=== PATIENT | female | born 1970 | race Caucasian/White ===

== ENCOUNTER 2022-05-07 16:49 | Emergency (ER) | payer OTHER ==
[2022-05-07 17:07] VITALS: BP 134/90; PULSE 98; RESP 18; TEMP 98.2; BMI 20.9
[2022-05-07] MEDS ORDERED: DIPHTH,PERTUSS(ACELL),TET 0.5 ML DISP.SYRIN IM ONE ×2 (17:50→18:26)
== END 2022-05-07 20:35 | disposition home or self-care (01) ==
LOC: JERFT 16:49 → JER 16:49 → JERFT 20:35
PROC: 3E0234Z Introduction of Serum, Toxoid and Vaccine into Muscle, Percutaneous Approach (ICD-10-PCS; principal; 2022-05-07)
DX: S61.411A Laceration without foreign body of right hand, initial encounter (principal); W29.8XXA Contact with other powered hand tools and household machinery, initial encounter
CPT/HCPCS: 90471; 90715; 99284-25

== ENCOUNTER 2023-08-09 07:33 | Inpatient (IN) | payer OTHER ==
[2023-08-09] MEDS: SODIUM CHLORIDE 1,000 ML IV STA (08:00)
[2023-08-09 08:34] LABS: VENOUS BASE EXCESS -5.5 mmol/L (-2-2); VENOUS O2 SATURATION 94.3 % (70-80)
[2023-08-09 08:36] LABS: BASO % 0.1 % (0-2.0); HEMATOCRIT 37.5 % (32.4-45.2); HEMOGLOBIN 13.1 GM/dL (10.7-15.3); LYMPH % 13.2 % (8-40); MCH 31.5 pg (25.7-33.7); MEAN CELL VOLUME 89.9 fl (80-96); MEAN PLT VOLUME 9.2 fl (7.5-11.1); MONO % 2.8 % (3.8-10.2); NEUT % 83.9 % (42.8-82.8); PLATELET COUNT 174 10^3/uL (134-434); RBC 4.17 M/mm3 (3.60-5.2); RDW 12.6 % (11.6-15.6); VENOUS PCO2 71.2 mmHg (38-52); VENOUS PH 7.157 (7.310-7.410); WHITE BLOOD COUNT 9.4 K/mm3 (4.0-10.0)
[2023-08-09 08:40] LABS: INR 1.07 (0.83-1.09); PROTHROMBIN TIME (PATIENT) 12.4 SEC (9.7-13.0)
[2023-08-09 08:43] LABS: ACTIVATED PTT 30.5 SECONDS (25.2-36.5)
[2023-08-09] MEDS ORDERED: DEXTROSE 5% IVPB ONE ×3 (08:43)
[2023-08-09] MEDS ORDERED: ACETYLCYSTEINE IVPB ONE ×3 (08:43)
[2023-08-09] MEDS ORDERED: WATER IVPB ONE ×3 (08:43)
[2023-08-09 09:00] LABS: CHLORIDE 104 mmol/L (98-107); POTASSIUM 4.4 mmol/L (3.5-5.1); SODIUM 137 mmol/L (136-145)
[2023-08-09 09:03] LABS: CALCIUM 8.9 mg/dL (8.5-10.1)
[2023-08-09 09:04] LABS: ANION GAP 8 mmol/L (4-13); BLOOD UREA NITROGEN 23.5 mg/dL (7-18); CO2 26 mmol/L (21-32); GLUCOSE,RANDOM 219 mg/dL (74-106); MAGNESIUM 2.5 mg/dL (1.8-2.4)
[2023-08-09 09:06] LABS: SGPT/ALT 26 U/L (13-61)
[2023-08-09 09:07] LABS: CREATININE 1.7 mg/dL (0.55-1.3); SGOT/AST 38 U/L (15-37)
[2023-08-09 09:08] LABS: BILIRUBIN,TOTAL 0.3 mg/dL (0.2-1); TOT PROT 6.9 g/dl (6.4-8.2)
[2023-08-09 09:09] LABS: ALK PHOS 64 U/L (45-117)
[2023-08-09 09:12] LABS: EPI CELLS >36 /uL (0-25.1); HYALINE CASTS 3 /uL (0-3.1); PH,URINE 6.5 (5.0-8.0); URINE APPEARANCE CLOUDY; URINE BACTERIA 406 /uL (0-1359); URINE BILIRUBIN NEGATIVE (NEGATIVE); URINE COLOR YELLOW; URINE GLUCOSE (UA) 1+ (NEGATIVE); URINE KETONE NEGATIVE (NEGATIVE); URINE LEUK ESTERASE 2+ (NEGATIVE); URINE NITRITE NEGATIVE (NEGATIVE); URINE PROTEIN 1+ (NEGATIVE); URINE RBC 12 /uL (0-23.9); URINE WBC 43 /uL (0-25.8)
[2023-08-09] MEDS: SODIUM CHLORIDE 0.9% 500 ML INFUS.BAG IV ONE (09:35)
[2023-08-09 10:20] LABS: ARTERIAL BLD GAS O2 SATURATION 99.3 % (95-98); ARTERIAL BLOOD GAS BASE EXCESS -4.7 mmol/L (-2-2); ARTERIAL BLOOD GAS PO2 207.8 mmHg (80-100); ARTERIAL BLOOD GAS pH 7.278 (7.350-7.450)
[2023-08-09] MEDS: WATER IVPB ONE ×6 (10:45→18:53)
[2023-08-09] MEDS: DEXTROSE 5% IVPB ONE ×6 (10:45→18:53)
[2023-08-09] MEDS: ACETYLCYSTEINE IVPB ONE ×6 (10:45→18:53)
[2023-08-09 14:22] LABS: ARTERIAL BLOOD GAS BASE EXCESS -2.2 mmol/L (-2-2); ARTERIAL BLOOD GAS PO2 63.2 mmHg (80-100); ARTERIAL BLOOD GAS pH 7.429 (7.350-7.450)
[2023-08-09 14:23] LABS: ALLENS TEST POSITIVE
[2023-08-09 14:24] LABS: VENT MODE AC; VENT RATE 16
[2023-08-09 14:59] LABS: POTASSIUM 3.7 mmol/L (3.5-5.1)
[2023-08-09 15:01] LABS: BLOOD UREA NITROGEN 24.2 mg/dL (7-18)
[2023-08-09 15:04] LABS: CREATININE 1.2 mg/dL (0.55-1.3)
[2023-08-09 15:06] LABS: BILIRUBIN,TOTAL 0.6 mg/dL (0.2-1); TOT PROT 5.1 g/dl (6.4-8.2)
[2023-08-09 15:16] LABS: ALBUMIN 2.9 g/dl (3.4-5.0)
[2023-08-09] MEDS: LACTATED RINGERS SOLUTION 1,000 ML/1,000 ML INFUS.BAG IV SCH (16:26)
[2023-08-09 18:03] LABS: INR 1.24 (0.83-1.09); PROTHROMBIN TIME (PATIENT) 14.3 SEC (9.7-13.0)
[2023-08-09 18:18] LABS: POTASSIUM 3.3 mmol/L (3.5-5.1)
[2023-08-09 18:25] LABS: BILIRUBIN,TOTAL 0.6 mg/dL (0.2-1); TOT PROT 5.6 g/dl (6.4-8.2)
[2023-08-09] MEDS: POTASSIUM CHLORIDE ORAL LIQUID 20 MEQ/15 ML PO ONE (18:52)
[2023-08-09] MEDS: CEFTRIAXONE 1 GM in DEXTROSE 5%-WATER - 50 ML IVPB SCH (18:53)
[2023-08-09] MEDS: LACTATED RINGERS SOLUTION 1000 ML INFUS.BAG IV ONE (18:54)
[2023-08-09] MEDS: FENTANYL NS IVPB 500 MCG/100 ML BAG IVPB SCH (20:03)
[2023-08-09] MEDS: MIDAZOLAM IN 0.9 % SOD.CHLORID 100 MG/100 ML PLAST..BAG IVPB SCH (20:03)
[2023-08-09] MEDS ORDERED: NOREPINEPHRINE BITARTRATE 4 MG/4 ML ML IV ONE (21:52)
[2023-08-09] MEDS: CHLORHEXIDINE GLUCONATE 4% CLEANSER FOR DECOLONIZATION TP SCH (21:53)
[2023-08-09] MEDS: NOREPINEPHRINE BITARTRATE 4,000 MCG in DEXTROSE 5%-WATER - 496 ML IV SCH (21:53)
[2023-08-09] MEDS: MUPIROCIN 2% TOPICAL OINTMENT FOR DECOLONIZATION NS SCH (21:57)
[2023-08-10 00:24] LABS: COCAINE, UR NEGATIVE (NEGATIVE); PHENCYCLIDINE,URINE NEGATIVE (NEGATIVE)
[2023-08-10 00:25] LABS: METHADONE, UR NEGATIVE (NEGATIVE); URINE AMPHETAMINES NEGATIVE (NEGATIVE); URINE BARBITURATES NEGATIVE (NEGATIVE)
[2023-08-10 01:18] LABS: OPIATES, URI POSITIVE (NEGATIVE); URINE BENZODIAZEPINES POSITIVE (NEGATIVE)
[2023-08-10 01:44] LABS: POTASSIUM 3.1 mmol/L (3.5-5.1)
[2023-08-10 01:49] LABS: ALBUMIN 2.6 g/dl (3.4-5.0); CALCIUM 7.6 mg/dL (8.5-10.1)
[2023-08-10 01:50] LABS: MAGNESIUM 1.3 mg/dL (1.8-2.4)
[2023-08-10 01:52] LABS: CREATININE 1.1 mg/dL (0.55-1.3); PHOSPHOROUS 3.1 mg/dL (2.5-4.9)
[2023-08-10 01:53] LABS: INR 1.43 (0.83-1.09); PROTHROMBIN TIME (PATIENT) 16.5 SEC (9.7-13.0)
[2023-08-10 01:54] LABS: BILIRUBIN,TOTAL 0.4 mg/dL (0.2-1); TOT PROT 5.1 g/dl (6.4-8.2)
[2023-08-10] MEDS: MAGNESIUM 2GM/50ML STERILE WATER IVPB IVPB ONE (03:00)
[2023-08-10] MEDS: KCL 10 MEQ IVPB 10 MEQ/100 ML INFUS.BAG IVPB SCH (03:15)
[2023-08-10] MEDS: CALCIUM GLUC IN NACL, ISO-OSM 1 GM/50 ML BAG IVPB ONE (04:10)
[2023-08-10] MEDS: LEVOTHYROXINE NA 100 MCG TABLET (FP) GT SCH (06:25)
[2023-08-10] MEDS: HEPARIN NA (PORCINE) 5,000 UNITS/ML 1ML VIAL SQ SCH (06:25)
[2023-08-10 07:00] LABS: BASO % 0.3 % (0-2.0); EOS % 0.3 % (0-4.5); HEMATOCRIT 37.4 % (32.4-45.2); HEMOGLOBIN 12.7 GM/dL (10.7-15.3); LYMPH % 24.1 % (8-40); MCH 30.6 pg (25.7-33.7); MCHC 33.8 g/dl (32.0-36.0); MEAN CELL VOLUME 90.5 fl (80-96); MEAN PLT VOLUME 9.4 fl (7.5-11.1); MONO % 3.1 % (3.8-10.2); NEUT % 72.2 % (42.8-82.8); PLATELET COUNT 142 10^3/uL (134-434); RBC 4.14 M/mm3 (3.60-5.2); RDW 12.5 % (11.6-15.6); WHITE BLOOD COUNT 4.3 K/mm3 (4.0-10.0)
[2023-08-10 07:14] LABS: INR 1.46 (0.83-1.09); PROTHROMBIN TIME (PATIENT) 16.9 SEC (9.7-13.0)
[2023-08-10 07:18] LABS: ALBUMIN 2.8 g/dl (3.4-5.0); BLOOD UREA NITROGEN 14.9 mg/dL (7-18); CALCIUM 8.6 mg/dL (8.5-10.1)
[2023-08-10 07:21] LABS: CREATININE 1.1 mg/dL (0.55-1.3)
[2023-08-10 07:22] LABS: BILIRUBIN,TOTAL 0.4 mg/dL (0.2-1); TOT PROT 5.3 g/dl (6.4-8.2)
[2023-08-10] MEDS: LEVOTHYROXINE SODIUM 100 MCG 5 ML VIAL IVPUSH ONE ×2 (07:25→07:26)
[2023-08-10] MEDS ORDERED: ENOXAPARIN NA (PORCINE) 40 MG/0.4 ML DISP.SYRIN SQ SCH ×2 (10:00)
[2023-08-10 10:57] LABS: MAGNESIUM 2.3 mg/dL (1.8-2.4)
[2023-08-10] MEDS: LACTATED RINGERS SOLUTION 1,000 ML/1,000 ML INFUS.BAG IV SCH (12:45)
[2023-08-10 16:37] LABS: INR 1.8 (0.83-1.09); PROTHROMBIN TIME (PATIENT) 20.8 SEC (9.7-13.0)
[2023-08-10 16:52] LABS: POTASSIUM 3.8 mmol/L (3.5-5.1)
[2023-08-10 16:54] LABS: ALBUMIN 2.4 g/dl (3.4-5.0); BLOOD UREA NITROGEN 12.1 mg/dL (7-18); CALCIUM 8.2 mg/dL (8.5-10.1)
[2023-08-10 16:58] LABS: CREATININE 0.8 mg/dL (0.55-1.3)
[2023-08-10 16:59] LABS: BILIRUBIN,TOTAL 0.2 mg/dL (0.2-1)
[2023-08-11] MEDS: LEVOTHYROXINE SODIUM 100 MCG 5 ML VIAL IVPUSH SCH (06:14)
[2023-08-11 06:29] LABS: HEMATOCRIT 32.1 % (32.4-45.2); HEMOGLOBIN 10.9 GM/dL (10.7-15.3); MCH 30.7 pg (25.7-33.7); MEAN CELL VOLUME 90.2 fl (80-96); MEAN PLT VOLUME 9.3 fl (7.5-11.1); PLATELET COUNT 137 10^3/uL (134-434); RBC 3.56 M/mm3 (3.60-5.2); RDW 12.9 % (11.6-15.6); WHITE BLOOD COUNT 6.6 K/mm3 (4.0-10.0)
[2023-08-11 06:48] LABS: INR 1.47 (0.83-1.09)
[2023-08-11 06:49] LABS: POTASSIUM 3.7 mmol/L (3.5-5.1)
[2023-08-11] MEDS ORDERED: LEVOTHYROXINE SODIUM 100 MCG 5 ML VIAL IVPUSH SCH (07:00)
[2023-08-11 07:01] LABS: CALCIUM 8.2 mg/dL (8.5-10.1)
[2023-08-11 07:02] LABS: ALBUMIN 2.3 g/dl (3.4-5.0); BLOOD UREA NITROGEN 14.3 mg/dL (7-18); MAGNESIUM 1.7 mg/dL (1.8-2.4)
[2023-08-11 07:05] LABS: CREATININE 0.8 mg/dL (0.55-1.3); PHOSPHOROUS 2.2 mg/dL (2.5-4.9)
[2023-08-11 07:06] LABS: BILIRUBIN,TOTAL 0.2 mg/dL (0.2-1); TOT PROT 4.8 g/dl (6.4-8.2)
[2023-08-11] MEDS: MAGNESIUM 1GM/D5W - 1 GM/100 ML IVPB IVPB ONE (08:45)
[2023-08-11] MEDS: NAPH,MB-DB/K PH,MBDB POWDER PACKET PO ONE (10:16)
[2023-08-11 13:52] LABS: INR 1.36 (0.83-1.09); PROTHROMBIN TIME (PATIENT) 15.7 SEC (9.7-13.0)
[2023-08-12 07:03] LABS: ARTERIAL BLD GAS O2 SATURATION 97.4 % (95-98); ARTERIAL BLOOD GAS BASE EXCESS -5.4 mmol/L (-2-2); ARTERIAL BLOOD GAS PO2 102.5 mmHg (80-100); ARTERIAL BLOOD GAS pH 7.333 (7.350-7.450)
[2023-08-12 07:14] LABS: ALLENS TEST POSITIVE
[2023-08-12 07:15] LABS: VENT MODE A/C; VENT RATE 16
[2023-08-12 07:38] LABS: BASO % 0.3 % (0-2.0); EOS % 1.4 % (0-4.5); HEMATOCRIT 32.2 % (32.4-45.2); HEMOGLOBIN 10.8 GM/dL (10.7-15.3); MCH 30.2 pg (25.7-33.7); MCHC 33.4 g/dl (32.0-36.0); MEAN CELL VOLUME 90.4 fl (80-96); MONO % 4.1 % (3.8-10.2); NEUT % 79.2 % (42.8-82.8); PLATELET COUNT 153 10^3/uL (134-434); RBC 3.57 M/mm3 (3.60-5.2); RDW 12.5 % (11.6-15.6); WHITE BLOOD COUNT 5.6 K/mm3 (4.0-10.0)
[2023-08-12 08:05] LABS: POTASSIUM 3.5 mmol/L (3.5-5.1)
[2023-08-12 08:25] LABS: ALBUMIN 2.3 g/dl (3.4-5.0); BLOOD UREA NITROGEN 10.8 mg/dL (7-18); CALCIUM 7.9 mg/dL (8.5-10.1); MAGNESIUM 1.6 mg/dL (1.8-2.4)
[2023-08-12 08:28] LABS: CREATININE 0.5 mg/dL (0.55-1.3); PHOSPHOROUS 2.1 mg/dL (2.5-4.9)
[2023-08-12 08:32] LABS: BILIRUBIN,TOTAL 0.3 mg/dL (0.2-1); TOT PROT 5.1 g/dl (6.4-8.2)
[2023-08-12] MEDS: MAGNESIUM SULF 50% (8.12 MEQ/2 ML-1 GM VIAL) IVPB ONE ×2 (09:14)
[2023-08-12] MEDS: NAPH,MB-DB/K PH,MBDB POWDER PACKET PO ONE (09:15)
[2023-08-13 07:59] LABS: POTASSIUM 3.4 mmol/L (3.5-5.1)
[2023-08-13 08:30] LABS: BASO % 0.5 % (0-2.0); EOS % 1.8 % (0-4.5); HEMOGLOBIN 10.4 GM/dL (10.7-15.3); LYMPH % 23.4 % (8-40); MCHC 34.7 g/dl (32.0-36.0); MEAN CELL VOLUME 89.5 fl (80-96); MEAN PLT VOLUME 8.8 fl (7.5-11.1); MONO % 7.2 % (3.8-10.2); NEUT % 67.1 % (42.8-82.8); PLATELET COUNT 187 10^3/uL (134-434); RBC 3.35 M/mm3 (3.60-5.2); RDW 12.6 % (11.6-15.6); WHITE BLOOD COUNT 4.7 K/mm3 (4.0-10.0)
[2023-08-13 08:42] LABS: CALCIUM 8.2 mg/dL (8.5-10.1)
[2023-08-13 08:44] LABS: ALBUMIN 2.4 g/dl (3.4-5.0); BLOOD UREA NITROGEN 7.5 mg/dL (7-18); MAGNESIUM 1.8 mg/dL (1.8-2.4)
[2023-08-13 08:46] LABS: CREATININE 0.5 mg/dL (0.55-1.3); PHOSPHOROUS 2.4 mg/dL (2.5-4.9)
[2023-08-13 08:47] LABS: BILIRUBIN,TOTAL 0.3 mg/dL (0.2-1); TOT PROT 5.4 g/dl (6.4-8.2)
[2023-08-13] MEDS: POTASSIUM CHLORIDE ORAL LIQUID 20 MEQ/15 ML PO ONE (09:57)
[2023-08-13] MEDS: MAGNESIUM SULF 50% (8.12 MEQ/2 ML-1 GM VIAL) IVPB ONE (19:21)
[2023-08-13] MEDS: NAPH,MB-DB/K PH,MBDB POWDER PACKET PO ONE (19:22)
[2023-08-14] MEDS: LACTATED RINGERS SOLUTION 1,000 ML/1,000 ML INFUS.BAG IV SCH (01:45)
[2023-08-14] MEDS: LEVOTHYROXINE NA 75 MCG TABLET (FP) PO SCH (06:05)
[2023-08-14] MEDS ORDERED: LEVOTHYROXINE NA 75 MCG TABLET (FP) PO SCH ×2 (07:00)
[2023-08-14 08:46] VITALS: RESP 18
[2023-08-14] MEDS ORDERED: MUPIROCIN 2% TOPICAL OINTMENT FOR DECOLONIZATION NS SCH (10:00)
[2023-08-14] MEDS ORDERED: CEFTRIAXONE 1 GM in DEXTROSE 5%-WATER - 50 ML IVPB SCH (10:00)
[2023-08-14 10:03] LABS: HEMATOCRIT 28.6 % (32.4-45.2); HEMOGLOBIN 9.8 GM/dL (10.7-15.3); MCH 30.4 pg (25.7-33.7); MCHC 34.2 g/dl (32.0-36.0); MEAN PLT VOLUME 8.1 fl (7.5-11.1); PLATELET COUNT 202 10^3/uL (134-434); RBC 3.21 M/mm3 (3.60-5.2); RDW 12.3 % (11.6-15.6)
[2023-08-14] MEDS: ENOXAPARIN NA (PORCINE) 40 MG/0.4 ML DISP.SYRIN SQ SCH (10:12)
[2023-08-14 10:18] LABS: POTASSIUM 3.1 mmol/L (3.5-5.1)
[2023-08-14 10:31] LABS: ALBUMIN 2.5 g/dl (3.4-5.0); BLOOD UREA NITROGEN 8.9 mg/dL (7-18); CALCIUM 7.9 mg/dL (8.5-10.1); MAGNESIUM 1.7 mg/dL (1.8-2.4)
[2023-08-14 10:34] LABS: CREATININE 0.5 mg/dL (0.55-1.3); PHOSPHOROUS 1.7 mg/dL (2.5-4.9)
[2023-08-14 10:36] LABS: BILIRUBIN,TOTAL 0.3 mg/dL (0.2-1); TOT PROT 5.1 g/dl (6.4-8.2)
[2023-08-14] MEDS: POTASSIUM CHLORIDE TABS 20 MEQ TABLET.ER (FP) PO ONE (12:45)
[2023-08-14] MEDS: NAPH,MB-DB/K PH,MBDB POWDER PACKET PO ONE (12:46)
[2023-08-14] MEDS ORDERED: MAGNESIUM SULF 50% (8.12 MEQ/2 ML-1 GM VIAL) ONE (12:49)
[2023-08-14] MEDS: MAGNESIUM 2GM/50ML STERILE WATER IVPB IVPB ONE ×2 (13:06→13:07)
[2023-08-14] MEDS: PROCHLORPERAZINE MALEATE 5 MG TABLET PO PRN (13:28)
[2023-08-14] MEDS ORDERED: ALBUTEROL SO4 2.5/IPRATROPIUM 0.5 INH SOL 3 ML VIAL.NEB. NEB PRN (14:48)
[2023-08-14] MEDS: AMOX TR/POT CLAV 875MG/125MG TABLETS (FP) PO SCH (17:55)
[2023-08-14] MEDS: FAMOTIDINE 20 MG TABLET PO ONE (22:01)
[2023-08-15] MEDS: LEVOTHYROXINE NA 100 MCG TABLET (FP) PO SCH (06:04)
[2023-08-15 10:08] LABS: HEMATOCRIT 32.2 % (32.4-45.2); HEMOGLOBIN 11.1 GM/dL (10.7-15.3); MCH 30.4 pg (25.7-33.7); MCHC 34.5 g/dl (32.0-36.0); MEAN CELL VOLUME 88.1 fl (80-96); MEAN PLT VOLUME 7.8 fl (7.5-11.1); PLATELET COUNT 243 10^3/uL (134-434); RBC 3.65 M/mm3 (3.60-5.2); RDW 12.2 % (11.6-15.6); WHITE BLOOD COUNT 4.8 K/mm3 (4.0-10.0)
[2023-08-15 10:23] LABS: POTASSIUM 3.2 mmol/L (3.5-5.1)
[2023-08-15 10:34] LABS: ALBUMIN 2.8 g/dl (3.4-5.0); CALCIUM 8.3 mg/dL (8.5-10.1)
[2023-08-15 10:35] LABS: MAGNESIUM 1.7 mg/dL (1.8-2.4)
[2023-08-15 10:37] LABS: CREATININE 0.5 mg/dL (0.55-1.3)
[2023-08-15 10:39] LABS: BILIRUBIN,TOTAL 0.3 mg/dL (0.2-1)
[2023-08-15] MEDS: ALBUTEROL SO4 2.5/IPRATROPIUM 0.5 INH SOL 3 ML VIAL.NEB. NEB SCH (11:53)
[2023-08-15] MEDS: ONDANSETRON 4 MG/2 ML VIAL IVPUSH PRN (13:46)
[2023-08-15] MEDS: MAGNESIUM OXIDE 400 MG TABLET (FP) PO ONE (14:51)
[2023-08-15] MEDS: POTASSIUM CHLORIDE TABS 20 MEQ TABLET.ER (FP) PO ONE (14:52)
[2023-08-15 22:42] VITALS: BMI 20.9
[2023-08-16] MEDS ORDERED: ZOLPIDEM TARTRATE 5 MG TABLET PO PRN (01:07)
[2023-08-16] MEDS: MAG HYDROX/AL HYDROX/SIMETH 30 ML UNIT-DOSE CUP PO ONE (09:25)
[2023-08-16 11:31] LABS: HEMOGLOBIN 12.5 GM/dL (10.7-15.3); MCH 30.2 pg (25.7-33.7); MCHC 34.7 g/dl (32.0-36.0); MEAN CELL VOLUME 87.1 fl (80-96); MEAN PLT VOLUME 7.4 fl (7.5-11.1); PLATELET COUNT 327 10^3/uL (134-434); RBC 4.13 M/mm3 (3.60-5.2); RDW 12.7 % (11.6-15.6); WHITE BLOOD COUNT 5.8 K/mm3 (4.0-10.0)
[2023-08-16 11:47] LABS: POTASSIUM 3.5 mmol/L (3.5-5.1)
[2023-08-16 11:52] LABS: CALCIUM 8.9 mg/dL (8.5-10.1)
[2023-08-16 11:53] LABS: BLOOD UREA NITROGEN 6.6 mg/dL (7-18)
[2023-08-16 11:55] LABS: CREATININE 0.6 mg/dL (0.55-1.3)
[2023-08-16 11:57] LABS: BILIRUBIN,TOTAL 0.3 mg/dL (0.2-1)
[2023-08-16 12:00] LABS: ANISOCYTOSIS 0; MACROCYTOSIS 0
[2023-08-16 12:01] LABS: ALBUMIN 3.5 g/dl (3.4-5.0)
[2023-08-16] MEDS: hydrOXYzine HCL 10 MG/5 ML UNIT DOSE CUPS PO PRN (16:58)
[2023-08-16 20:59] VITALS: BP 140/90; PULSE 95; TEMP 97.9
[2023-08-16] MEDS: busPIRone HCL 10 MG TABLET (FP) PO SCH (21:27)
[2023-08-16] MEDS: MELATONIN 5 MG TABLETS PO SCH (21:27)
== END 2023-08-17 01:30 | disposition left against medical advice (07) | DRG 812 ==
LOC: JER 07:33 → JERBED 07:59 → JICU 10:00 → J6S 08-13 21:18
PROVIDERS: ADMIT Internal Medicine Pulmonary Disease; ATTEND Internal Medicine
PROC: 5A1945Z Respiratory Ventilation, 24-96 Consecutive Hours (ICD-10-PCS; principal; 2023-08-09)
DX: T40.2X2A Poisoning by other opioids, intentional self-harm, initial encounter (principal); J69.0 Pneumonitis due to inhalation of food and vomit; J96.01 Acute respiratory failure with hypoxia; J96.02 Acute respiratory failure with hypercapnia; G93.41 Metabolic encephalopathy; E44.0 Moderate protein-calorie malnutrition; J90 Pleural effusion, not elsewhere classified; N17.9 Acute kidney failure, unspecified; E87.29 Other acidosis; I95.89 Other hypotension; E83.42 Hypomagnesemia; T39.1X2A Poisoning by 4-Aminophenol derivatives, intentional self-harm, initial encounter; T42.6X2A Poisoning by other antiepileptic and sedative-hypnotic drugs, intentional self-harm, initial encounter; Y92.009 Unspecified place in unspecified non-institutional (private) residence as the place of occurrence of the external cause; F13.20 Sedative, hypnotic or anxiolytic dependence, uncomplicated; F32.A Depression, unspecified; F41.9 Anxiety disorder, unspecified; E87.6 Hypokalemia; G89.29 Other chronic pain; Z85.850 Personal history of malignant neoplasm of thyroid; F11.20 Opioid dependence, uncomplicated; G47.00 Insomnia, unspecified; F43.20 Adjustment disorder, unspecified; R74.01 Elevation of levels of liver transaminase levels
CPT/HCPCS: 0241U-QW; 36415; 36600; 70450-TC; 71045-TC-FY; 71250-TC; 74176-TC; 80053; 80307; 81003; 82607; 82728; 82746; 82803; 82962; 83540; 83550; 83605; 83735; 84100; 84439; 84443; 84484; 84703; 85025; 85027; 85610; 85730; 86850; 86900; 86901; 87040; 87070; 87086; 87205; 93005; 93010; 93306-TC; 94002; 94640; 97116-GP; 97161-GP; 99285-25; J1644